=== PATIENT | female | born 1960 | race Caucasian/White ===

== ENCOUNTER 2020-07-30 23:49 | Emergency (ER) | payer OTHER, SELFPAY ==
[2020-07-30 23:51] VITALS: BP 92/56; PULSE 100; RESP 16; TEMP 36.6; O2SAT 94; BMI 33.5
[2020-07-31] VITALS (9 sets, daily range): BP systolic 98–132; BP diastolic 60–86; PULSE 76–99; RESP 12–82; TEMP 36.6–37; O2SAT 95–100
--- NOTE | 2020-07-31 00:44 | CTR_ITS ---
PROCEDURE INFORMATION: Exam: CT Head Without Contrast Exam date and time: 07/31/2020 12:50 AM Age: 59 years old Clinical indication: Pain; Headache TECHNIQUE: Imaging protocol: Computed tomography of the head without contrast. Radiation optimization: All CT scans at this facility use at least one of these dose optimization techniques: automated exposure control; mA and/or kV adjustment per patient size (includes targeted exams where dose is matched to clinical indication); or iterative reconstruction. COMPARISON: CT head wo con* [id number] 09/25/2018 10:36 AM RADIATION DOSE METRICS: Total DLP (mGy-cm): 736.95 FINDINGS: Brain: No hemorrhage. Unremarkable white matter. No mass effect. Continued slight prominence of the supratentorial subarachnoid spaces. Cerebral ventricles: Continued mild enlargement of the 3rd and lateral ventricles compared to the normal 4th ventricle. Paranasal sinuses: Visualized sinuses still unremarkable. No fluid levels. Mastoid air cells: Visualized mastoid air cells still well aerated. Bones/joints: Unremarkable. No acute fracture. Soft tissues: Unremarkable. CT/CT head wo con* [id number] IMPRESSION: No acute findings. Radiation Dose CTDIVOL = (mGy): DLP = 736.95 (mGy-cm)
--- NOTE | 2020-07-31 00:50 | W.ED.HA ---
HPI - Headache General: Chief Complaint: Headache Stated Complaint: HEADACHE Time Seen by Provider: 07/31/20 00:19 History of Present Illness: HPI Narrative: Patient comes in today for complaints of migraine headache. Patient reports that the headache is very similar to her usual migraines. Patient was given hydrocodone and Zofran at the [facility] in which she [facility]. Patient reported some improvement in her headache but continues to have discomfort in the posterior neck. Patient has a history of MS and Pritesh Washington syndrome. Patient is alert and oriented and responds appropriately to questions. Review of Systems General: Reports: 10 or more systems reviewed and unremarkable except in HPI and below Neuro: Reports: headache(s) Physical Exam Const: COMMON NORMALS: no acute distress and patient oriented x3 GENERAL APPEARANCE: cooperative HENMT: COMMON NORMALS: normocephalic and Normal external nose present HEAD & SCALP: normal to inspection and normocephalic NOSE: Normal external nose present Eye: GENERAL EYE: appearance normal, both eyes and all related structures Neck/C-Spine: COMMON NORMALS: full ROM Lymph: LYMPHATIC: no lymphadenopathy noted Chest: COMMONS NORMALS: normal inspection of the chest Resp: COMMON NORMALS: normal respiratory effort EFFORT & INSPECTION: Yes able to speak in complete sentences Cardio: COMMON NORMALS: regular rate and regular rhythm RATE: regular rate RHYTHM: regular rhythm GI: COMMON NORMALS: non-tender Extremity: COMMON NORMALS: normal to inspection Neuro: COMMON NORMALS: patient oriented x3 and moves all extremities Psych: COMMON NORMALS: mental status grossly normal and cooperative Skin: COMMON NORMALS: no rashes or lesions noted GENERAL SKIN EXAM: no rashes or lesions noted Course Vital Signs: Vital signs: Vital Signs Temperature 97.9 F 07/30/20 23:51 Pulse Rate 88 07/31/20 00:58 Respiratory Rate 20 H 07/31/20 00:58 Blood Pressure 98/60 07/31/20 00:58 Pulse Oximetry 98 07/31/20 00:58 MDM - Headache MDM Narrative: Medical decision making narrative: 59-year-old female comes in today with complaints of migraine headache. Patient reports that this is similar to her previous migraines. Patient [facility] the detention since having a bout of GBS. Patient was treated with hydrocodone and Zofran with minimal to no relief of pain. Patient was then sent to the ER for further evaluation and treatment. No neurologic deficits were noted. Respirations were even. Skin was warm and dry. Vital signs were normal. Differential diagnosis includes but not limited to migraine headache, tension headache, intracranial bleeding. CT scan was negative. Patient was treated with a migraine cocktail and had resolution of headache. Reviewed with patient and family reported understanding and agreed to plan to return to the detention for continued care. Discharge Plan Discharge Patient Disposition: Home Clinical Impression: Migraine Qualifiers: Migraine type: unspecified Status migrainosus presence: without status migrainosus Intractability: not intractable Qualified Code(s): G43.909 - Migraine, unspecified, not intractable, without status migrainosus Condition: Stable Discharge Orders: Discharge ED (Routine); Ordered 07/31/20 Ordered By: Daniel Canela Referrals: David Da Silva DO [Primary Care Provider] - Discharge Diet: Usual diet Discharge Activity: Increase activity as tolerated Patient Instructions: Opioid Safety Activity Restrictions/Additional Instructions: Continue with routine care. Encourage plenty of fluids. Follow-up with primary care for further instruction. Coding Level of Care Code ED Entertainer & Comic for Chg Fwd Exam Comprehensive
[2020-07-31] MEDS: diphenhydrAMINE 50 mg/mL SDV 1mL 12.5 MG IVP ×2 (01:19→02:44)
[2020-07-31] MEDS: metoclopramide 5 mg/mL SDV 2 mL 10 MG IVP (01:20)
[2020-07-31] MEDS: dexamethasone 10 mg/mL INJ IVP (01:20)
[2020-07-31] MEDS: ketorolac 30 mg/mL INJ 15 MG IVP (01:20)
--- NOTE | 2020-07-31 06:46 | PC.NURSE ---
Received report assumed care. No changes noted from report. Resting with lights off. Resting on back right side. Vital charted.
== END 2020-07-31 07:46 | disposition home or self-care (01) ==
PROVIDERS: Emergency Provider Nurse Practitioner Family; PCP Internal Medicine
DX: G43.909 Migraine, unspecified, not intractable, without status migrainosus (principal)
CPT/HCPCS: 70450; 96374; 96375; 96376; 99284; J1100; J1200; J1885; J2765

== ENCOUNTER 2021-02-15 09:24 | Inpatient (IN) | payer OTHER, SELFPAY ==
[2021-02-15] VITALS (10 sets, daily range): BP systolic 126–178; BP diastolic 76–110; PULSE 76–115; RESP 16–22; TEMP 36.7–37.2; O2SAT 92–97; BMI 33.3
--- NOTE | 2021-02-15 09:44 | CTR_ITS ---
PROCEDURE INFORMATION: Exam: CT Abdomen And Pelvis With Contrast Exam date and time: 02/15/2021 9:44 AM Age: 60 years old Clinical indication: Epigastric; Patient HX: 58-year-old female presents emergency room complaining of upper abdominal pain with coffee-ground emesis. She refers pain to the left upper quadrant. ; Additional info: Abd pain TECHNIQUE: Imaging protocol: Computed tomography of the abdomen and pelvis with contrast. Radiation optimization: All CT scans at this facility use at least one of these dose optimization techniques: automated exposure control; mA and/or kV adjustment per patient size (includes targeted exams where dose is matched to clinical indication); or iterative reconstruction. Contrast material: VISIPAQUE; Contrast volume: 95 ml; Contrast route: INTRAVENOUS (IV); COMPARISON: CT abdomen pelvis w con* [id number] 10/26/2018 6:50 PM RADIATION DOSE METRICS: Total DLP (mGy-cm): 1643.18 FINDINGS: Liver: Normal. No mass. Gallbladder and bile ducts: Cholecystectomy. No ductal dilation. Pancreas: Normal. No ductal dilation. Spleen: Multiple calcified granulomas noted in the spleen. No splenomegaly. Adrenal glands: Normal. No mass. Kidneys and ureters: Bilateral cortical thinning. 1 cm cyst in the interpolar region of the left kidney. Stomach and bowel: Moderate-sized hiatal hernia containing the proximal portion of the stomach. Scattered colonic diverticulosis without findings of acute diverticulitis. No obstruction. No mucosal thickening. Appendix: No evidence of appendicitis. Intraperitoneal space: Unremarkable. No free air. No significant fluid collection. Vasculature: No abdominal aortic aneurysm. There is a well-defined nonocclusive filling defect/thrombus within the IVC starting at the level of the renal veins extending inferiorly to the level of the bifurcation of the common iliac veins. It measures over 10 cm in craniocaudal dimension. There also appears to be nonocclusive thrombus within the left external iliac and superficial femoral veins. Lymph nodes: Unremarkable. No enlarged lymph nodes. Urinary bladder: Circumferential wall thickening of the bladder with Haro catheter in place. Reproductive: Unremarkable as visualized. Bones/joints: No acute fracture. Soft tissues: Tiny fat containing umbilical hernia noted. Multiple calcified nodules noted in the gluteal subcutaneous tissues, likely injection sites. CT/CT abdomen pelvis w con* [id number] IMPRESSION: 1. 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 There also appears to be nonocclusive thrombus within the left external iliac and for superficial femoral vein. Ultrasound DVT study should provide more sensitive evaluation for the full extent of thrombus proximally through the common iliac vessels. 2. Circumferential wall thickening of the bladder. Correlate with urinalysis. 3. Moderate-sized hiatal hernia containing the proximal portion of the stomach. COMMENTS: Consistent with the [employer]'s Incidental Findings Committee white paper (J Am Lorenzo Radiol 2018): Any incidental renal lesion less than 1 cm or classified as too small to characterize, or any incidental cystic renal lesion characterized as simple-appearing, is likely benign. No follow-up imaging is recommended for these lesions per consensus recommendations based on imaging criteria.
--- NOTE | 2021-02-15 10:12 | W.ED.GIBLEED ---
HPI - GI Bleed General: Chief complaint: GI Bleed Stated complaint: UPPER ABD PAIN/GI BLEED Time Seen by Provider: 02/15/21 09:24 History of Present Illness: HPI Narrative: 58-year-old female presents emergency room complaining of upper abdominal pain with coffee-ground emesis. She refers pain to the left upper quadrant. She denies dysuria urgency frequency shortness of breath. Patient has a history of multiple sclerosis and Guillain-Washington?. [facility]. She is incontinent of stool and bowel. There is no reports of hematochezia. She denies any fever sweats or chills. MD complaint: coffee ground emesis Onset (ago): hour(s) Pain Consistency: intermittent Severity: moderate Relieving factors: none Exacerbating factors: none Associated symptoms: Reports abdominal pain, nausea, vomiting and weakness; Denies chills, easy bruising, epistaxis, fever(s), headache(s), malaise, other bleeding, poor appetite, rash or syncope Treatments Prior to Arrival: none Review of Systems Const: Denies: fever(s), chills or malaise ENMT: Denies: epistaxis Card: Denies: syncope Resp: Denies: dyspnea, productive cough or non-productive cough GI: Reports: abdominal pain, nausea and vomiting : Denies: flank pain, difficulty voiding, dysuria, urinary frequency or urinary urgency Skin/Breast: Denies: rash Neuro: Denies: headache(s) Phil/Lymph: Denies: easy bruising PFS ED PFSH: Medical History (Updated 02/22/21 @ 08:56 by Ismael Pedroza DO) 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 Multiple sclerosis Social History (Updated 02/15/21 @ 10:18 by Ismael Pedroza DO) Smoking and tobacco status: never smoked Alcohol intake: never Physical Exam Const: GENERAL APPEARANCE: cooperative and comfortable ORIENTATION/CONSCIOUSNESS: Yes awake, Yes oriented to person, Yes oriented to place and Yes oriented to time HENMT: COMMON NORMALS: normocephalic, atraumatic and hearing grossly normal bilaterally HEAD & SCALP: normocephalic and atraumatic Neck/C-Spine: COMMON NORMALS: no JVD Resp: COMMON NORMALS: normal respiratory effort, No retractions, No use of accessory muscles and clear to auscultation bilaterally AUSCULTATION: clear to auscultation bilaterally Cardio: COMMON NORMALS: no JVD, regular rate, regular rhythm and No murmurs present (Cardio) RATE: regular rate RHYTHM: regular rhythm GI: COMMON NORMALS: No hepatosplenomegaly present AUSCULTATION: Yes normoactive bowel sounds PALPATION: Yes Tenderness to palpation present (GI) Details: LUQ, No Guarding due to palpation present (GI) and Yes No hepatosplenomegaly present Extremity: COMMON NORMALS: normal to inspection, capillary refill normal, no clubbing, cyanosis or edema, no calf tenderness and no pedal edema Neuro: SENSORIUM/ORIENTATION: Yes oriented to person, Yes oriented to place and Yes oriented to time Skin: COMMON NORMALS: no rashes or lesions noted GENERAL SKIN EXAM: no rashes or lesions noted Course Vital Signs: Vital signs: Vital Signs Temperature 98.3 F 02/17/21 19:00 Pulse Rate 88 02/17/21 19:00 Respiratory Rate 16 02/17/21 19:00 Blood Pressure 130/74 02/17/21 19:00 Pulse Oximetry 94 02/17/21 19:00 MDM - GI Bleed MDM Narrative: Medical decision making narrative: Labs imaging and EKG reviewed. Patient has pretty significant DVT of her lower extremity. Also has acute on chronic kidney injury. Given her extent of DVT and nearly reaches the renal veins. And then kidney injury recommend that she be monitored. We will go ahead and admit herDiscussed with hospitalist orders written Lab Data: Labs: Lab Results 02/15/21 02/15/21 02/15/21 10:04 10:13 10:13 WBC 13.3 10^3/uL H 10 ^3/uL (4.0-10.0) RBC 4.09 10^6/uL L 10 ^6/uL (4.1-5.3) Hgb 11.4 g/dL L g/dL (11.5-15.3) Hct 36.8 % L % (37.0-47.0) MCV 90.0 fl fl (81-99) MCH 27.9 pg L pg (28.0-34.0) MCHC 31.0 g/dL g/dL (30.0-36.0) RDW 15.1 % % (12.1-15.1) Plt Count 413 10^3/cmm H 10 ^3/cmm (130-400) MPV 10.6 fL H fL (7.4-10.4) Neut % (Auto) 86.3 % % Lymph % (Auto) 6.4 % % [place] % (Auto) 6.5 % % Eos % (Auto) 0.2 % % Baso % (Auto) 0.3 % % Neut # (Auto) 11.48 10^3/uL H 1 0^3/uL (1.8-7.7) Lymph # (Auto) 0.9 10^3/uL 10^3/ uL (0.8-4.8) [place] # (Auto) 0.9 10^3/uL 10^3/ uL (0.2-0.9) Eos # (Auto) 0.0 10^3/uL 10^3/ uL (0.0-0.8) Baso # (Auto) 0.0 10^3/uL 10^3/ uL (0.0-0.1) Nucleated RBC % (a uto) 0 % % Nucleated RBCs # 0.0 /100WBC /100W BC PT INR APTT Sodium 136 mmol/L mmol/L (136-145) Potassium 4.0 mmol/L mmol/L (3.5-5.1) Chloride 98 mmol/L mmol/L (98-107) Carbon Dioxide 22 mmol/L mmol/L (22-29) Anion Gap 20.0 H (5-19) BUN 24 mg/dL H mg/dL (8-23) Creatinine 1.3 mg/dL H mg/dL (0.5-0.9) GFR Calculation 41.5 mL/min L mL/ min (90-130) Glucose 120 mg/dL H mg/dL (65-115) Calculated Osmolal ity 287 mOsm/kg mOsm/ kg (285-295) Calcium 9.1 mg/dL mg/dL (8.5-10.5) Total Bilirubin 0.2 mg/dL mg/dL (0.15-1.2) AST 16 U/L U/L (0-32) ALT 8 U/L U/L (0-33) Alkaline Phosphata se 136 IU/L H IU/L (35-105) Total Protein 7.5 g/dL g/dL (6.6-8.7) Albumin 3.9 g/dL g/dL (3.5-5.2) Globulin 3.6 g/dL g/dL (1.3-4.6) Urine Color Brown (Yellow) Urine Appearance Cloudy (CLEAR) Urine pH 8 H (5-7) Ur Specific Gravit y 1.010 (1.005-1.030) Urine Protein Neg (Negative) Urine Glucose (UA) Norm (Normal) Urine Ketones Negative (Negative) Urine Blood 2+ H (Negative) Urine Nitrate Negative (Negative) Urine Bilirubin Neg (Negative) Prot Sulfosalicyli c Acd Positive (Negative) Urine Urobilinogen Norm mg/dL mg/dL (Negative) Ur Leukocyte Alisha ase 1+ H (Negative) Urine RBC 0-4 /hpf H /hpf (0-2) Urine WBC 0-4 /hpf H /hpf (0-5) Ur Squamous Epith Cells Rare /hpf /hpf (0-5) Amorphous Sediment Not Reportable Urine Bacteria 4+ /hpf H /hpf (NONE) 02/15/21 11:29 WBC RBC Hgb Hct MCV MCH MCHC RDW Plt Count MPV Neut % (Auto) Lymph % (Auto) [place] % (Auto) Eos % (Auto) Baso % (Auto) Neut # (Auto) Lymph # (Auto) [place] # (Auto) Eos # (Auto) Baso # (Auto) Nucleated RBC % (a uto) Nucleated RBCs # PT 13.90 SECONDS SEC ONDS (12.1-14.9) INR 1.04 (0.8-1.2) APTT 31.7 SECONDS SECO NDS (23.9-36.7) Sodium Potassium Chloride Carbon Dioxide Anion Gap BUN Creatinine GFR Calculation Glucose Calculated Osmolal ity Calcium Total Bilirubin AST ALT Alkaline Phosphata se Total Protein Albumin Globulin Urine Color Urine Appearance Urine pH Ur Specific Gravit y Urine Protein Urine Glucose (UA) Urine Ketones Urine Blood Urine Nitrate Urine Bilirubin Prot Sulfosalicyli c Acd Urine Urobilinogen Ur Leukocyte Alisha ase Urine RBC Urine WBC Ur Squamous Epith Cells Amorphous Sediment Urine Bacteria Discharge Plan Discharge Patient Disposition: Admitted As Inpatient Admit Provider: Kristian Nix Clinical Impression: Deep vein thrombosis, lower right extremity, Acute kidney injury superimposed on CKD, 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
[2021-02-15] MEDS: pantoprazole 40 mg SDV 80 MG IVP (10:23)
[2021-02-15] MEDS: morphine 4 mg/mL SDV 1 mL 2 MG IVP (10:39)
[2021-02-15 10:52] LABS: Blood Urine 2+ (Negative); Sulfosalicylic Acid Urine Positive (Negative); Urine Appearance Cloudy (CLEAR); Urine Color Brown (Yellow); pH Urine 8 (5-7)
[2021-02-15 10:53] LABS: Add Urine Culture? Yes; Add Urine Microscopic? YES; Bacteria Urine 4+ /hpf; Bilirubin Urine Neg (Negative); Glucose Urine UA Norm (Normal); Ketones Urine Negative (Negative); Leukocyte Esterase Urine 1+ (Negative); Nitrate Urine Negative (Negative); Protein Urine Neg (Negative); RBC Urine 0-4 /hpf (0-2); Squamous Epithelial Cell Urine RARE /hpf (0-5); Urobilinogen Urine Norm (Negative); WBC Urine 0-4 /hpf (0-5)
--- NOTE | 2021-02-15 11:07 | PC.PHAR ---
pt is from [facility]-huy nurse at [facility] states the pt has been refusing to take her am meds for the last 3 days-states the pt took a norco today but states it came back up
[2021-02-15 11:31] LABS: Basophils % 0.3 %; Eosinophils % 0.2 %; Hematocrit 36.8 % (37.0-47.0); Hemoglobin 11.4 g/dL (11.5-15.3); Lymphocytes # 0.9 10^3/uL (0.8-4.8); Lymphocytes % 6.4 %; Mean Corpuscular Hemoglobin 27.9 pg (28.0-34.0); Mean Platelet Volume 10.6 fL (7.4-10.4); Monocytes # 0.9 10^3/uL (0.2-0.9); Monocytes % 6.5 %; Neutrophils # 11.48 10^3/uL (1.8-7.7); Neutrophils % 86.3 %; Nucleated Red Blood Cells % 0 %; Platelet Count 413 10^3/cmm (130-400); Red Blood Count 4.09 10^6/uL (4.1-5.3); Red Cell Distribution Width 15.1 % (12.1-15.1); White Blood Count 13.3 10^3/uL (4.0-10.0)
[2021-02-15 11:55] LABS: INR 1.04 (0.8-1.2)
[2021-02-15 11:56] LABS: Partial Thromboplastin Time 31.7 SECONDS (23.9-36.7)
[2021-02-15 12:03] LABS: Alanine Aminotransferase 8 U/L (0-33); Albumin Level 3.9 g/dL (3.5-5.2); Alkaline Phosphatase 136 IU/L (35-105); Aspartate Amino Transferase 16 U/L (0-32); Blood Urea Nitrogen 24 mg/dL (8-23); Calcium 9.1 mg/dL (8.5-10.5); Carbon Dioxide 22 mmol/L (22-29); Chloride 98 mmol/L (98-107); Creatinine Clr Calc Pharmacy 49.9284; Globulin 3.6 g/dL (1.3-4.6); Glomerular Filtration Rate 41.5 mL/min (90-130); Glucose 120 mg/dL (65-115); Osmolality Calculated 287 mOsm/kg (285-295); Sodium 136 mmol/L (136-145); Total Bilirubin 0.2 mg/dL (0.15-1.2); Total Protein 7.5 g/dL (6.6-8.7)
[2021-02-15] MEDS: iodixanol 320 mg/mL 100mL Btl IV (12:58)
--- NOTE | 2021-02-15 15:47 | USCV_ITS ---
Ari Margarita Age: 60 Gender: F : 1960 Exam Date: 02/15/2021 15:55 Ordering Phys: Ismael Pedroza DO Technologist: Exam Location: [facility] – [place] Indication: ? PE HISTORY: BED STASIS PT DOES NOT WALK PROCEDURES: The venous duplex Doppler examination of both lower extremities was performed in the standard fashion. The following venous structures were evaluated: common femoral vein, profunda vein, proximal portion of the greater saphenous vein, superficial femoral vein, and the popliteal vein. FINDINGS: THERE IS NON OCCLUDING DVT IN RT CFV, FEMORAL VEIN AND RT POP. THE LEFT LEG APPEARS TO BE NORMAL BUT THE EXAM IS TECH LIMITED DUE TO LOW VEIN VOLUME CONCLUSIONS Non occlusive DVT Right common femoral vein, femoral vein, and right popliteal vein No evidence of left lower extremity DVT. Po Tee MD (Electronically Signed) Final Date: 15 February 2021 16:24 S
[2021-02-15] MEDS: heparin 5,000 unit/mL INJ 1 mL 4000 UNIT IVP (16:15)
[2021-02-15] MEDS: heparin drip 25,000 UNIT/500 ML PREMIX 47.17 UNIT IV (16:19)
--- NOTE | 2021-02-15 17:21 | PM.HP ---
Providers/Chief Complaint Primary Care Provider: David Da Silva DO Chief Complaint: UPPER ABD PAIN/GI BLEED History of Present Illness Margarita Chapman is a 60 year old female with PMH of GBS, [facility] and is bed bound with indwelling christensen catheter came in with c/o abdominal pain as well as nausea and vomiting,she describes the pain in LUQ as well as in epigastric region started today, describe the pain with moderate intensity, non radiating,accompanied with nausea and coffee ground emesis. She denied any chest pain,cough,sob,fever,headache. Upon arrival in the ER she was worked up for above mention complain. 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 There also appears to be nonocclusive thrombus within the left external iliac and for superficial femoral vein. Lower Extremity B/L Doppler Vein : Non occlusive DVT Right common femoral vein, femoral vein, and right popliteal vein No evidence of left lower extremity DVT. Pertinent Labs : WBC :13.3T , H&H : 11.4/36, PLT : 413 , Serum Na: 136, k: 4, bun/scr: 24/1.3, Urine analysis :Clean She was started on Hepain drip in the ER Review of Systems Const: Denies: fever(s), chills, body aches, change in appetite or diaphoresis Card: Denies: palpitations, edema, swelling of feet/ankles or orthopnea Resp: Denies: dyspnea, productive cough, wheezing or pain on inspiration GI: Denies: diarrhea or constipation : Denies: flank pain Musc: Denies: extremity pain or extremity swelling Neuro: Denies: headache(s) or confusion Medications/Allergies Home Medications Medication Instructions Recorded Confirmed Last Taken Type acetaminophen [Tylenol] 650 mg PO Q6H PRN 02/15/21 02/15/21 Unknown History albuterol sulfate 2.5 mg INHALATION Q4H PRN 02/15/21 02/15/21 Unknown History bisacodyl [Dulcolax (bisacodyl)] 10 mg MI DAILY PRN 02/15/21 02/15/21 Unknown History calcium carbonate [Tums] 300 mg PO TID@08,12,16 02/15/21 02/15/21 Unknown History cholecalciferol (vitamin D3) 25 mcg PO DAILY@08 02/15/21 02/15/21 Unknown History [Vitamin D3] citalopram [Celexa] 10 mg PO BEDTIME@20 02/15/21 02/15/21 Unknown History cyclobenzaprine 5 mg PO TID PRN 02/15/21 02/15/21 Unknown History divalproex [Depakote ER] 250 mg PO DAILY 02/15/21 02/15/21 Unknown History docusate sodium 100 mg PO BID PRN 02/15/21 02/15/21 Unknown History gabapentin See Rx Instructions .ROUTE .COMPLEX 02/15/21 02/15/21 Unknown History hydrocodone-acetaminophen 1 tab PO Q6H PRN 02/15/21 02/15/21 02/15/21 08:00 History lorazepam [Ativan] 0.5 mg PO BEDTIME@02/15/21 02/15/21 Unknown History magnesium hydroxide [Milk of 30 ml PO DAILY PRN 02/15/21 02/15/21 Unknown History Magnesia] omeprazole 20 mg PO DAILY@08 02/15/21 02/15/21 Unknown History ondansetron [Zofran ODT] 4 - 8 mg PO Q6H PRN 02/15/21 02/15/21 02/14/21 History phenol [Chloraseptic Throat [place]] 1 spray MUCOUS MEMBRANE . 02/15/21 02/15/21 Unknown History DIRECTED polyethylene glycol 3350 [Miralax] 17 g PO DAILY PRN 02/15/21 02/15/21 Unknown History propylene glycol-glycerin 1 drp OPHTHALMIC (EYE) TID PRN 02/15/21 02/15/21 Unknown History [Artificial Tears(glycerin-peg)] saliva stimulant comb. no.7 See Rx Instructions .ROUTE .COMPLEX 02/15/21 02/15/21 Unknown History [Biotene Oralbalance (glycerin)] sodium phosphates [Fleet Enema] 118 ml MI DAILY PRN 02/15/21 02/15/21 Unknown History thiamine mononitrate (vit B1) 200 mg PO BID 02/15/21 02/15/21 Unknown History trazodone 50 mg PO BEDTIME@20 02/15/21 02/15/21 Unknown History Allergies Allergy/AdvReac Type Severity Reaction Status Date / Time cephalexin [From Keflex] Allergy Unknown Verified 02/15/21 10:46 clindamycin [From Cleocin] Allergy Unknown Verified 02/15/21 10:46 nitrofurantoin Allergy Unknown Verified 02/15/21 10:46 [From Macrobid] Penicillins Allergy ALGY-Hives Verified 07/30/20 23:59 Sulfa (Sulfonamide Allergy Unknown Verified 02/15/21 10:46 Antibiotics) PFSH Acute PFSH: Medical History (Updated 02/15/21 @ 22:21 by Kristian Nix MD) 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 Multiple sclerosis Social History (Updated 02/15/21 @ 10:18 by Ismael Pedroza DO) Smoking and tobacco status: never smoked Alcohol intake: never Substance/Drug Use: never Vitals/I&O/Wt Last Vital Signs Temp 99.0 F 02/15/21 13:00 Pulse 110 H 02/15/21 13:00 Resp 18 02/15/21 13:00 BP 167/96 02/15/21 13:00 Pulse Ox 93 02/15/21 13:00 Weight last 48 hrs Weight 90.718 kg Physical Exam Const: COMMON NORMALS: patient oriented x3 HENMT: COMMON NORMALS: normocephalic and atraumatic HEAD & SCALP: normocephalic and atraumatic Chest: CHEST: Yes Symmetrical chest wall rise Resp: COMMON NORMALS: clear to auscultation bilaterally EFFORT & INSPECTION: Yes symmetric chest movement AUSCULTATION: clear to auscultation bilaterally Cardio: COMMON NORMALS: regular rate, regular rhythm, S1 normal heart sound present, S2 normal heart sound present, No gallops present (Cardio), No murmurs present (Cardio), No rub (Cardio) and Peripheral pulses 2+ throughout RATE: regular rate RHYTHM: regular rhythm HEART SOUNDS: S1 normal heart sound present and S2 normal heart sound present PERIPHERAL PULSES: Peripheral pulses 2+ throughout GI: COMMON NORMALS: Normal to inspection, nondistended, normoactive bowel sounds present, Soft to palpation, non-tender, No hepatosplenomegaly present and no masses AUSCULTATION: Yes normoactive bowel sounds PALPATION: Yes Soft to palpation and Yes No hepatosplenomegaly present RECTAL EXAM: deferred Extremity: COMMON NORMALS: no clubbing, cyanosis or edema and no pedal edema Neuro: COMMON NORMALS: patient oriented x3 Data : 02/15/21 10:13 02/15/21 10:13 A&P Assessment and plan (1) Deep vein thrombosis, lower right extremity: Status: Acute (2) Acute kidney injury superimposed on CKD: Status: Acute (3) Thrombocytosis: Status: Acute (4) 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 and is bed bound with indwelling christensen catheter came in with c/o abdominal pain as well as nausea and vomiting,she describes the pain in LUQ as well as in epigastric region started today, describe the pain with moderate intensity, non radiating,accompanied with nausea and coffee ground emesis. #Extensive Rt lower Extremity DVT : Likely 2/2 to being bed bound Currently on Heparin drip,will switch to lovenox and finally transition to eliquis on discharge. #Coffee Ground Emesis : On Protonix Continue to monitor H&H #GIAN ON CKD Stage 3 : 2/2 to poor oral intake Continue I.V Hydration Monitor BMP. Code Status :Full code DVT PPX:On Heparin Attestations Medical Necessity Statement*: Patient needs to be in hospital for the management of extensive rt lower ext dvt.Anticipated LOS Greater then 2 Midnights. 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
[2021-02-15] MEDS: sodium chloride 0.9% 1,000 ML 75 ML IV (17:25)
--- NOTE | 2021-02-15 17:28 | PC.NURSE ---
Rolled pt and changed diaper. Repositioned for comfort
--- NOTE | 2021-02-15 19:40 | PC.NURSE ---
report called to [facility] and report given to Nanette Snyder .
--- NOTE | 2021-02-15 20:56 | PC.NURSE ---
i reported high pulse 103 to nurse
[2021-02-15] MEDS: thiamine 100 mg Tablet 200 MG PO (22:26)
[2021-02-15] MEDS: citalopram 20 mg Tablet 10 MG PO (22:26)
[2021-02-15] MEDS: trazodone 50 mg Tablet PO (22:26)
[2021-02-15] MEDS: gabapentin 300 mg Capsule 600 MG PO (22:26)
[2021-02-15] MEDS: LORazepam 0.5 mg Tablet PO (22:27)
[2021-02-16] VITALS (8 sets, daily range): BP systolic 120–140; BP diastolic 77–83; PULSE 91–104; RESP 16–18; TEMP 36.6–37.1; O2SAT 93–99
[2021-02-16 00:20] LABS: Partial Thromboplastin Time 147.4 SECONDS (23.9-36.7)
[2021-02-16] MEDS: sodium chloride 0.9% 1,000 ML 75 ML IV ×2 (04:41→17:48)
[2021-02-16 06:52] LABS: Basophils % 0.5 %; Eosinophils # 0.1 10^3/uL (0.0-0.8); Eosinophils % 1.1 %; Hematocrit 31.8 % (37.0-47.0); Hemoglobin 9.7 g/dL (11.5-15.3); Lymphocytes # 1.4 10^3/uL (0.8-4.8); Lymphocytes % 16.1 %; Mean Corpuscular HGB Conc 30.5 g/dL (30.0-36.0); Mean Corpuscular Hemoglobin 27.5 pg (28.0-34.0); Mean Corpuscular Volume 90.1 fl (81-99); Mean Platelet Volume 9.9 fL (7.4-10.4); Monocytes # 0.7 10^3/uL (0.2-0.9); Monocytes % 8.5 %; Neutrophils # 6.16 10^3/uL (1.8-7.7); Neutrophils % 73.2 %; Nucleated Red Blood Cells % 0 %; Platelet Count 368 10^3/cmm (130-400); Red Blood Count 3.53 10^6/uL (4.1-5.3); Red Cell Distribution Width 15.4 % (12.1-15.1); White Blood Count 8.4 10^3/uL (4.0-10.0)
[2021-02-16 07:05] LABS: Alanine Aminotransferase 6 U/L (0-33); Albumin Level 3.2 g/dL (3.5-5.2); Alkaline Phosphatase 116 IU/L (35-105); Aspartate Amino Transferase 13 U/L (0-32); Blood Urea Nitrogen 21 mg/dL (8-23); Carbon Dioxide 20 mmol/L (22-29); Chloride 103 mmol/L (98-107); Globulin 3.1 g/dL (1.3-4.6); Glomerular Filtration Rate 50.3 mL/min (90-130); Glucose 105 mg/dL (65-115); Osmolality Calculated 287 mOsm/kg (285-295); Sodium 137 mmol/L (136-145); Total Bilirubin 0.2 mg/dL (0.15-1.2); Total Protein 6.3 g/dL (6.6-8.7)
[2021-02-16 07:45] LABS: Partial Thromboplastin Time 145.8 SECONDS (23.9-36.7)
[2021-02-16] MEDS: thiamine 100 mg Tablet 200 MG PO ×2 (08:07→17:48)
[2021-02-16] MEDS: gabapentin 300 mg Capsule PO ×2 (08:07→11:45)
[2021-02-16] MEDS: divalproex ER 250 mg Tablet (24H) PO (08:08)
[2021-02-16] MEDS: pantoprazole DR 40 mg Tablet PO (08:08)
--- NOTE | 2021-02-16 09:24 | PC.NURSE ---
Patient has urine culture: gram negative rods. Green Chain Worker notified Dr Nix and collin order for Levafloxacin 750mg IV daily. development writer put order in.
--- NOTE | 2021-02-16 10:05 | PC.NURSE ---
Rcvd verbal order from Dr Nix for Maalox PRN, Lovenox 90mg BID and to stop heparin drip
[2021-02-16] MEDS: HYDROcodone-acetaminophen 5-325 mg Tablet 1 TAB PO (10:12)
[2021-02-16] MEDS: levofloxacin-dextrose 5 % 750 MG/150 ML PREMIX 100 MG IV (10:13)
[2021-02-16] MEDS: alum-mag-hydroxide-sime 30 mL UDC PO ×2 (10:16→17:48)
[2021-02-16] MEDS: enoxaparin 100 mg/mL Syringe 90 MG SUBCUT ×2 (11:28→21:09)
--- NOTE | 2021-02-16 13:26 | P.PN_ITS ---
Subjective Subjective: Interval history: Patient was seen and examined this morning, she was complaining of generalized abdominal pain, she was also complaining of nausea, Hb has down trended to 9.7, WBC is also down trended to 8.4, as well as platelet count has decreased, likely dilutional secondary to IV hydration. Continue to monitor hemoglobin Medications: Reviewed: Yes Vitals/I&O/Wt Last Vital Signs Temp 98.2 F 02/16/21 11:24 Pulse 97 02/16/21 11:24 Resp 16 02/16/21 11:24 BP 120/78 02/16/21 11:24 Pulse Ox 95 02/16/21 11:24 02/15/21 02/16/21 02/16/21 22:59 06:59 14:59 Intake Total 1139 / 1139 250 / 250 Output Total 260 / 260 175 / 175 Balance 879 / 879 75 / 75 Weight last 48 hrs Weight 90.718 kg Physical Exam Const: COMMON NORMALS: patient oriented x3 HENMT: COMMON NORMALS: normocephalic and atraumatic HEAD & SCALP: normocephalic and atraumatic Chest: CHEST: Yes Symmetrical chest wall rise Resp: COMMON NORMALS: clear to auscultation bilaterally EFFORT & INSPECTI ON: Yes symmetric chest movement AUSCULTATION: clear to auscultation bilaterally Cardio: COMMON NORMALS: regular rate, regular rhythm, S1 normal heart sound present, S2 normal heart sound present, No gallops present (Cardio), No murmurs present (Cardio), No rub (Cardio) and Peripheral pulses 2+ throughout RATE: regular rate RHYTHM: regular rhythm HEART SOUNDS: S1 normal heart sound present and S2 normal heart sound present PERIPHERAL PULSES: Peripheral pulses 2+ throughout GI: COMMON NORMALS: Normal to inspection, nondistended, normoactive bowel sounds present, Soft to palpation, non-tender, No hepatosplenomegaly present and no masses AUSCULTATION: Yes normoactive bowel sounds PALPATION: Yes Soft to palpation and Yes No hepatosplenomegaly present RECTAL EXAM: deferred Extremity: COMMON NORMALS: no clubbing, cyanosis or edema and no pedal edema Neuro: COMMON NORMALS: patient oriented x3 Data : 02/17/21 04:35 02/17/21 04:35 Micro: Microbiology 02/15/21 10:04 Urine Culture - Preliminary Urine,Clean Catch Gram Negative Rods Gram Negative Rods#2 A&P Assessment and plan (1) Deep vein thrombosis, lower right extremity: Status: Acute (2) Acute kidney injury superimposed on CKD: Status: Acute (3) Thrombocytosis: Status: Acute (4) 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 #Extensive Rt lower Extremity DVT : Likely 2/2 to being bed bound Currently on Heparin drip,will switch to lovenox and finally transition to eliquis on discharge. #Coffee Ground Emesis : On Protonix Continue to monitor H&H #GIAN ON CKD Stage 3 : 2/2 to poor oral intake Continue I.V Hydration Monitor BMP. 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
[2021-02-16 14:15] LABS: Partial Thromboplastin Time 38.7 SECONDS (23.9-36.7)
--- NOTE | 2021-02-16 15:35 | PC.NURSE ---
christensen catheter was placed on January 28 per SNF.
--- NOTE | 2021-02-16 15:55 | PC.NURSE ---
patient arrived back from MRI
[2021-02-16] MEDS: LORazepam 0.5 mg Tablet PO (21:06)
[2021-02-16] MEDS: trazodone 50 mg Tablet PO (21:07)
[2021-02-16] MEDS: gabapentin 300 mg Capsule 600 MG PO (21:07)
[2021-02-16] MEDS: citalopram 20 mg Tablet 10 MG PO (21:08)
[2021-02-16] MEDS: ondansetron 2 mg/ML SDV 2 mL 4 MG IVP (21:39)
--- NOTE | 2021-02-16 22:47 | PC.NURSE ---
Pt reports no nausea or vomiting. requests more for snack. I have already given her several snacks. Advised her to not eat anything else at this time since she was feeling like vomiting about an hour ago. RAHEL
[2021-02-17] VITALS (7 sets, daily range): BP systolic 114–130; BP diastolic 68–78; PULSE 88–99; RESP 16–18; TEMP 36.7–36.8; O2SAT 91–96
--- NOTE | 2021-02-17 04:42 | PC.NURSE ---
Lab at bedside. IV to right AC pulled out. Pressure applied to site. min bleeding noted. IV fluids changed to left AC site. RAHEL
[2021-02-17 05:22] LABS: Basophils % 0.5 %; Eosinophils # 0.1 10^3/uL (0.0-0.8); Hematocrit 29.4 % (37.0-47.0); Hemoglobin 8.8 g/dL (11.5-15.3); Lymphocytes # 1.4 10^3/uL (0.8-4.8); Lymphocytes % 23.3 %; Mean Corpuscular HGB Conc 29.9 g/dL (30.0-36.0); Mean Corpuscular Hemoglobin 27.5 pg (28.0-34.0); Mean Corpuscular Volume 91.9 fl (81-99); Mean Platelet Volume 10.1 fL (7.4-10.4); Monocytes # 0.7 10^3/uL (0.2-0.9); Monocytes % 10.9 %; Neutrophils # 3.77 10^3/uL (1.8-7.7); Neutrophils % 63.1 %; Nucleated Red Blood Cells % 0 %; Platelet Count 326 10^3/cmm (130-400); Red Cell Distribution Width 15.2 % (12.1-15.1)
[2021-02-17 05:48] LABS: Alanine Aminotransferase 6 U/L (0-33); Albumin Level 3.1 g/dL (3.5-5.2); Alkaline Phosphatase 106 IU/L (35-105); Anion Gap 15.9 (5-19); Aspartate Amino Transferase 11 U/L (0-32); Blood Urea Nitrogen 15 mg/dL (8-23); Carbon Dioxide 19 mmol/L (22-29); Chloride 109 mmol/L (98-107); Globulin 2.9 g/dL (1.3-4.6); Glomerular Filtration Rate 50.3 mL/min (90-130); Glucose 93 mg/dL (65-115); Osmolality Calculated 291 mOsm/kg (285-295); Potassium 3.9 mmol/L (3.5-5.1); Sodium 140 mmol/L (136-145); Total Bilirubin 0.2 mg/dL (0.15-1.2)
--- NOTE | 2021-02-17 06:00 | US_ITS ---
WS: [id number] Complete ABDOMINAL ULTRASOUND HISTORY: Abdominal pain COMPARISON: None available. Technically very difficult evaluation due to body habitus. Liver: 14.4 cm in length. Normal size with coarse echotexture. The entire liver is incompletely visua lized. Portal Vein: Normal hepatopetal flow with monophasic waveform. Gallbladder: Not visualized. Pancreas: Head and tail are poorly visualized. The body is normal. CBD: 0.5 cm. Right kidney: 9.3 cm x 4.9 cm x 4.5 cm. Poorly visualized. No abnormality. Left kidney: 10.6 cm x 5.2 cm x 5.3 cm. Poorly visualized. No abnormality. Spleen: Poorly visualized. Normal size. Aorta and IVC are poorly visualized. No ascites. US/US abdomen complete* [id number] IMPRESSION: 1. Technically very limited evaluation of the abdominal structures due to body habitus. 2. Gallbladder is not identified. After reviewing the prior CT from 10/08/2018 the gallbladder is noted to be surgically absent. 3. No acute abnormality identified.
[2021-02-17] MEDS: thiamine 100 mg Tablet 200 MG PO (09:30)
[2021-02-17] MEDS: gabapentin 300 mg Capsule PO ×2 (09:30→13:27)
[2021-02-17] MEDS: pantoprazole DR 40 mg Tablet PO (09:30)
[2021-02-17] MEDS: HYDROcodone-acetaminophen 5-325 mg Tablet 1 TAB PO (09:30)
[2021-02-17] MEDS: divalproex ER 250 mg Tablet (24H) PO (09:31)
[2021-02-17] MEDS: enoxaparin 100 mg/mL Syringe 90 MG SUBCUT (09:31)
[2021-02-17] MEDS: sodium chloride 0.9% 1,000 ML 75 ML IV (09:32)
--- NOTE | 2021-02-17 10:20 | P.DS_ITS ---
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 She denied any chest pain,cough,sob,fever,headache. Upon arrival in the ER she was worked up for above mention complain. 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 There also appears to be nonocclusive thrombus within the left external iliac and for superficial femoral vein. Lower Extremity B/L Doppler Vein : Non occlusive DVT Right common femoral vein, femoral vein, and right popliteal vein No evidence of left lower extremity DVT. She was admitted for the management of extensive right lower extremity DVT: Initially she was kept on heparin,and later she was transitioned to Lovenox subacute and she was discharged on p.o. Eliquis, though the hemoglobin decreased to 8.8, likely it is dilutional effect from IV hydration given to her secondary to GIAN secondary to severe dehydration, no evident active source of bleeding identified, at the time of discharge prerenal GIAN secondary to poor oral intake had resolved, urine culture during the hospital stay: Grew E. coli and Proteus mirabilis: Sensitive to cefuroxime, she has been discharged on p.o. cefuroxime for additional 3 days, for UTI, she has chronic generalized pain, for which she is on [place]. Had no episode of coffee-ground emesis during the hospital stay, Protonix was continued on discharge. She will follow-up with repeat CBC in a week to monitor hemoglobin, she has been educated on side effects of anticoagulation,(bleeding), patient and family understands. Patient has been advised to follow with the primary care physician in a week with repeat CBC. Patient responded well to above medical management and is being discharged in stable condition to senior care. Physical Exam Const: COMMON NORMALS: patient oriented x3 HENMT: COMMON NORMALS: normocephalic and atraumatic HEAD & SCALP: normocephalic and atraumatic Chest: CHEST: Yes Symmetrical chest wall rise Resp: COMMON NORMALS: clear to auscultation bilaterally EFFORT & INSPECTION: Yes symmetric chest movement AUSCULTATION: clear to auscultation bilaterally Cardio: COMMON NORMALS: regular rate, regular rhythm, S1 normal heart sound present, S2 normal heart sound present, No gallops present (Cardio), No murmurs present (Cardio), No rub (Cardio) and Peripheral pulses 2+ throughout RATE: regular rate RHYTHM: regular rhythm HEART SOUNDS: S1 normal heart sound present and S2 normal heart sound present PERIPHERAL PULSES: Peripheral pulses 2+ throughout GI: COMMON NORMALS: Normal to inspection, nondistended, normoactive bowel sounds present, Soft to palpation, non-tender, No hepatosplenomegaly present and no masses AUSCULTATION: Yes normoactive bowel sounds PALPATION: Yes Soft to palpation and Yes No hepatosplenomegaly present RECTAL EXAM: deferred Extremity: COMMON NORMALS: no clubbing, cyanosis or edema and no pedal edema Neuro: COMMON NORMALS: patient oriented x3 Discharge Data Data Completed and Pending: Completed Studies During Hospitalization Category Date Time Status CT abdomen pelvis w con* [id number] Stat Cat Scan 02/15/21 09:44 [place] [id number] Stat Ultrasound 02/15/21 15:47 Completed US abdomen comple te* [id number] Routine Ultrasound 02/17/21 06:00 Completed Pending at discharge Category Date Time Status Blood Culture Rou gregorio Lab 02/16/21 18:00 Results Complete Blood Co unt w/Auto AM LABS Lab 02/18/21 04:00 Ordered Comprehensive Met abolic Panel AM LA BS Lab 02/18/21 04:00 Ordered Gastricult Occult BLD Stat Lab 02/15/21 09:44 Ordered Immunochemical Fe carson OCB Routine Lab 02/16/21 10:19 Uncollected Labs from last 24 hours 02/17/21 02/17/21 02/16/21 04:35 04:35 13:48 WBC 6.0 RBC 3.20 L Hgb 8.8 L Hct 29.4 L MCV 91.9 MCH 27.5 L MCHC 29.9 L RDW 15.2 H Plt Count 326 MPV 10.1 Neut % (Auto) 63.1 Lymph % (Auto) 23.3 [place] % (Auto) 10.9 Eos % (Auto) 2.0 Baso % (Auto) 0.5 Neut # (Auto) 3.77 Lymph # (Auto) 1.4 [place] # (Auto) 0.7 Eos # (Auto) 0.1 Baso # (Auto) 0.0 Nucleated RBC % (a uto) 0 Nucleated RBCs # 0.0 APTT 38.7 H D Sodium 140 Potassium 3.9 Chloride 109 H Carbon Dioxide 19 L Anion Gap 15.9 BUN 15 Creatinine 1.1 H GFR Calculation 50.3 L Glucose 93 Calculated Osmolal ity 291 Calcium 8.0 L Total Bilirubin 0.2 AST 11 ALT 6 Alkaline Phosphata se 106 H Total Protein 6.0 L Albumin 3.1 L Globulin 2.9 Vitals: Last Vital Signs Temp 98.1 F 02/17/21 07:39 Pulse 94 02/17/21 07:47 Resp 18 02/17/21 07:47 BP 124/78 02/17/21 07:39 Pulse Ox 92 02/17/21 07:47 Discharge Plan Discharge Patient Disposition: Xfer SNF Condition: Stable Prescriptions: New Eliquis 5 mg tablet 5 mg PO BID Qty: 60 RF: 3 cefuroxime axetil 500 mg tablet 500 mg PO BID Qty: 6 RF: 0 Continued docusate sodium 50 mg/5 mL Liquid 100 mg PO BID PRN (Reason: Constipation) RF: 0 Tylenol 325 mg Tablet 650 mg PO Q6H PRN (Reason: Pain) RF: 0 albuterol sulfate 2.5 mg /3 mL (0.083 %) Solution For Nebulization 2.5 mg INHALATION Q4H PRN (Reason: Shortness Of Breath) RF: 0 trazodone 50 mg Tablet 50 mg PO BEDTIME@20 RF: 0 Celexa 10 mg Tablet 10 mg PO BEDTIME@20 RF: 0 hydrocodone-acetaminophen 5-325 mg Tablet 1 tab PO Q6H PRN (Reason: Pain) RF: 0 Tums 300 mg (750 mg) Tablet,Chewable 300 mg PO TID@08,12,16 RF: 0 Ativan 0.5 mg Tablet 0.5 mg PO BEDTIME@20 RF: 0 Milk of Magnesia 400 mg/5 mL Suspension 30 ml PO DAILY PRN (Reason: Constipation) RF: 0 Dulcolax (bisacodyl) 10 mg Suppository 10 mg [place] DAILY PRN (Reason: Constipation) RF: 0 Fleet Enema 19-7 gram/118 mL Enema 118 ml [place] DAILY PRN (Reason: Constipation) RF: 0 gabapentin 300 mg Capsule See Rx Instructions .ROUTE .COMPLEX RF: 0 omeprazole 20 mg Capsule,Delayed Release(Dr/Ec) 20 mg PO DAILY@08 RF: 0 Miralax 17 gram/dose Powder 17 g PO DAILY PRN (Reason: Constipation) RF: 0 Zofran ODT 4 mg Tablet,Disintegrating 4 - 8 mg PO Q6H PRN (Reason: Nausea) RF: 0 Chloraseptic Throat [place] 1.4 % Aerosol,[place] 1 spray MUCOUS MEMBRANE . DIRECTED RF: 0 Vitamin D3 25 mcg (1,000 unit) Capsule 25 mcg PO DAILY@08 RF: 0 Artificial Tears(glycerin-peg) 1-0.3 % Drops 1 drp OPHTHALMIC (EYE) TID PRN (Reason: unknown) RF: 0 Depakote ER 250 mg Tablet Extended Release 24 Hr 250 mg PO DAILY RF: 0 cyclobenzaprine 5 mg Tablet 5 mg PO TID PRN (Reason: Muscle Spasm) RF: 0 thiamine mononitrate (vit B1) 100 mg Tablet 200 mg PO BID RF: 0 Biotene Oralbalance (glycerin) Gel See Rx Instructions .ROUTE .COMPLEX RF: 0 Discharge Orders: Discharge Order (Routine); Ordered 02/17/21 Ordered By: Kristian Nix Other Ambulatory Orders: Complete Blood Count w/Auto (Routine) Timeframe: 1 Week Location: Determined by Patient Ordered By: Kristian Nix Referrals: David Da Silva, [Primary Care Provider] - 1 week Discharge Diet: Regular Patient Instructions: Opioid Safety Discharge Attestations Time Spent in Discharge Care*: less than 30 min Specific Discharge Activities: educating patient, educating and/or supporting family/caregiver, discussing with pcp/other providers, discussing with case checker/social workers/dc planners, documenting/other paperwork and evaluating patient/reviewing data Status at Discharge: Cognitive status at discharge: cognitively intact , Behavioral status at discharge: cooperative , Overall status at discharge: patient is back to baseline Quality Metrics Clinical Quality Measures During this hospital stay, did patient experience: None Coding Level of Care Code Acute Chg DC note Diagnoses Deep vein thrombosis, lower right extremity I82.401 Acute kidney injury superimposed on CKD N17.9; N18.9 Thrombocytosis D75.839 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
[2021-02-17] MEDS: lactulose oral liq 20 gm/30 mL UDC PO (10:43)
[2021-02-17] MEDS: ondansetron 2 mg/ML SDV 2 mL 4 MG IVP (13:35)
[2021-02-17 15:04] LABS: Adenovirus Not Detected (NOT DETECT); Chlamydia Pneumoniae Not Detected (NOT DETECT); Coronavirus 229E,HKU1,NL63,OC4 Not Detected (NOT DETECT); Human Metapneumovirus Not Detected (NOT DETECT); Human Rhinovirus/Enterovirus Not Detected (NOT DETECT); Influenza A Not Detected (NOT DETECT); Influenza A H1 Not Detected (NOT DETECT); Influenza A H1-2009 Not Detected (NOT DETECT); Influenza A H3 Not Detected (NOT DETECT); Influenza B Not Detected (NOT DETECT); Mycoplasma Pneumoniae Not Detected (NOT DETECT); Parainfluenza Virus Type 1 Not Detected (NOT DETECT); Parainfluenza Virus Type 2 Not Detected (NOT DETECT); Parainfluenza Virus Type 3 Not Detected (NOT DETECT); Parainfluenza Virus Type 4 Not Detected (NOT DETECT); Respiratory Syncytial Virus A Not Detected (NOT DETECT); Respiratory Syncytial Virus B Not Detected (NOT DETECT); SARS-COV-2 Not Detected (NOT DETECT)
--- NOTE | 2021-02-17 15:40 | PC.NURSE ---
Called and gave report to WARD Fragoso at [facility].
== END 2021-02-17 19:00 | disposition skilled nursing facility (03) | DRG 300 ==
LOC: ER 13:28 → MEDSURG 17:54
PROVIDERS: Admitting Provider Internal Medicine; Emergency Provider Family Medicine; PCP Internal Medicine; Visit Provider Internal Medicine
DX: I82.411 Acute embolism and thrombosis of right femoral vein (principal); N17.9 Acute kidney failure, unspecified; G61.0 Guillain-Barre syndrome; N39.0 Urinary tract infection, site not specified; I82.431 Acute embolism and thrombosis of right popliteal vein; I82.422 Acute embolism and thrombosis of left iliac vein; G35 Multiple sclerosis; N18.30 Chronic kidney disease, stage 3 unspecified; D75.839 Thrombocytosis, unspecified; D63.1 Anemia in chronic kidney disease; Z74.01 Bed confinement status; E86.0 Dehydration; B96.20 Unspecified Escherichia coli [E. coli] as the cause of diseases classified elsewhere; B96.4 Proteus (mirabilis) (morganii) as the cause of diseases classified elsewhere; Z79.891 Long term (current) use of opiate analgesic
CPT/HCPCS: 36415; 74177; 76700; 80053; 81001; 85025; 85610; 85730; 87040; 87077; 87086; 87186; 87205; 87635; 93970; 96365; 96366; 96372; 96375; 99285; C9113; J1644; J1650; J1956; J2270; J2405; J7030; Q9967

== ENCOUNTER 2021-05-07 10:56 | Outpatient (CLI) | payer OTHER, SELFPAY ==
[2021-05-07 11:34] LABS: INR 2.65 (0.8-1.2)
== END 2021-05-07 10:57 | disposition home or self-care (01) ==
LOC: LAB 10:57
PROVIDERS: PCP Internal Medicine; Visit Provider Internal Medicine
DX: Z01.89 Encounter for other specified special examinations (principal)
CPT/HCPCS: 85610

== ENCOUNTER 2021-05-17 09:16 | Emergency (ER) | payer OTHER, SELFPAY ==
[2021-05-17 09:17] VITALS: BP 121/68; PULSE 102; RESP 18; TEMP 37.2; O2SAT 96
--- NOTE | 2021-05-17 09:21 | ECG_ITS ---
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 Measurements Intervals [place] Rate: 96 P: 1 LA: 135 QRS: 55 QRSD: 70 T: 38 QT: 316 QTc: 400 Interpretive Statements SINUS RHYTHM Compared to ECG 11/14/2018 15:09:03 T-wave abnormality no longer present Electronically Signed On 05-17-2021 16:40:37 CDT by iLtzy Valencia M.D. [email or web address]
[2021-05-17 09:23] VITALS: BP 123/65; PULSE 94; RESP 18; O2SAT 96
--- NOTE | 2021-05-17 09:23 | W.ED.FEMALGU ---
HPI - Female Genitourinary General: Chief complaint: Urogenital-Female Stated complaint: BLOOD IN CATH Time Seen by Provider: 05/17/21 09:17 Source: patient Mode of arrival: EMS Limitations: other (Patient reports mild memory deficits) History of Present Illness: 60-year-old female presents emergency room with complaint of hematuria. She has suprapubic discomfort that began in the last 24 hours. She had a long standing Haro in place she cannot recall exactly when it was placed. Patient reports she has a history of multiple sclerosis and Guillain-[place]?. Per the [place] [facility] report that she was previously on Eliquis, then changed to Coumadin. Evidently yesterday she had an INR of 14 and the Coumadin was stopped. In order calling to check and see if she has been restarted on the Eliquis or some other anticoagulant. In January 2021 patient was hospitalized had an extensive nonocclusive DVT extending to the level of the renal vein from the iliac. At that same time she presented with acute kidney injury so she was hospitalized for a brief period of time and anticoagulation was initiated. She is not having any hematuria she has having some suprapubic discomfort between the umbilicus and pubic bone. MD elicited complaint: other (Hematuria) Onset (ago): hour(s) Severity: mild Quality of pain: cramping Consistency: constant Urinary symptoms: Hematuria Relieving factors: none Associated symptoms: Reports abdominal pain; Deny short of breath, fevers/chills, headache(s), nausea, rash, seizures, syncope, vaginal bleeding, vaginal discharge or weakness Treatment prior to arrival: none Review of Systems Const: Denies: fever(s), chills, body aches, change in appetite, fatigue or malaise ENMT: Denies: throat pain, ear or mastoid pain, nasal discharge or nasal congestion Card: Denies: syncope Resp: Denies: dyspnea, productive cough or non-productive cough GI: Reports: abdominal pain; Denies: nausea : Denies: vaginal discharge Skin/Breast: Denies: rash or pruritus Neuro: Denies: headache(s) PFS ED PFSH: 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 sclerosis Social History Smoking and tobacco status: never smoked Alcohol intake: never Physical Exam Const: GENERAL APPEARANCE: cooperative and comfortable ORIENTATION/CONSCIOUSNESS: Yes awake HENMT: COMMON NORMALS: normocephalic, atraumatic and hearing grossly normal bilaterally HEAD & SCALP: normocephalic and atraumatic Neck/C-Spine: COMMON NORMALS: no JVD Resp: COMMON NORMALS: normal respiratory effort, No retractions, No use of accessory muscles and clear to auscultation bilaterally AUSCULTATION: clear to auscultation bilaterally Cardio: COMMON NORMALS: no JVD, regular rate, regular rhythm and No murmurs present (Cardio) RATE: regular rate RHYTHM: regular rhythm GI: COMMON NORMALS: No hepatosplenomegaly present AUSCULTATION: Yes normoactive bowel sounds PALPATION: Yes Tenderness to palpation present (GI) (Suprapubic tenderness), No Guarding due to palpation present (GI) and Yes No hepatosplenomegaly present : SPECULUM EXAM - VAGINA: No vaginal bleeding OB/EXTERNAL & SPECULUM: No vaginal bleeding Extremity: COMMON NORMALS: normal to inspection, capillary refill normal, no clubbing, cyanosis or edema, no calf tenderness and no pedal edema Skin: COMMON NORMALS: no rashes or lesions noted GENERAL SKIN EXAM: no rashes or lesions noted Course Vital Signs: Vital signs: Vital Signs Temperature 99 F 05/17/21 09:17 Pulse Rate 94 05/17/21 09:23 Respiratory Rate 18 05/17/21 09:23 Blood Pressure 123/65 05/17/21 09:23 Pulse Oximetry 96 05/17/21 09:23 MDM - Female Medical Decision Making Patient arrived with hematuria. See notes above she is on anticoagulant for fairly extensive deep but nonocclusive DVT is approaching the renal artery. She recently switched from Eliquis from clot due to cost to Coumadin her INR was elevated at 14 reportedly yesterday. After irrigation here she has no further bleeding. Reversing her anticoagulation at this point is not necessary she is not having any active bleeding. We will treat her with antibiotics for short course. Recheck INR CBC and BMP at the [place] [facility] within the next 2 to 3 days. Bladder irrigated with 2 L in the ER and patient had return of clear fluid for the last 1500 of irrigation. Medical Records I reviewed the patient's medical records. Lab Data I reviewed the patient's lab results. : 05/17/21 09:30 05/17/21 09:30 Radiology Impressions Abdomen/Pelvis CT 05/17/21 09:32 IMPRESSION: 1. No hydronephrosis in either kidney. No obstructing renal or ureteral calculi. 2. Prior hysterectomy. 3. Mild hepatomegaly. Prior cholecystectomy. 4. Moderate esophageal hiatal hernia with partial intrathoracic stomach. 5. Slight hazy atelectasis in the lung bases. 6. Haro catheter in place. Diffuse bladder wall thickening similar to the prior examination. Recommend correlation for cystitis/UTI. Laboratory Results WBC 19.6 10^3/uL (4.0-10.0) H 05/17/21 09:30 RBC 3.82 10^6/uL (4.1-5.3) L 05/17/21 09:30 Hgb 10.2 g/dL (11.5-15.3) L 05/17/21 09:30 Hct 33.7 % (37.0-47.0) L 05/17/21 09:30 MCV 88.2 fl (81-99) 05/17/21 09:30 MCH 26.7 pg (28.0-34.0) L 05/17/21 09:30 MCHC 30.3 g/dL (30.0-36.0) 05/17/21 09:30 RDW 15.4 % (12.1-15.1) H 05/17/21 09:30 Plt Count 443 10^3/cmm (130-400) H 05/17/21 09:30 MPV 9.4 fL (7.4-10.4) 05/17/21 09:30 Neut % (Auto) 88.9 % 05/17/21 09:30 Lymph % (Auto) 5.7 % 05/17/21 09:30 Gilliam % (Auto) 4.1 % 05/17/21 09:30 Eos % (Auto) 0.5 % 05/17/21 09:30 Baso % (Auto) 0.3 % 05/17/21 09:30 Neut # (Auto) 17.45 10^3/uL (1.8-7.7) H 05/17/21 09:30 Lymph # (Auto) 1.1 10^3/uL (0.8-4.8) 05/17/21 09:30 Gilliam # (Auto) 0.8 10^3/uL (0.2-0.9) 05/17/21 09:30 Eos # (Auto) 0.1 10^3/uL (0.0-0.8) 05/17/21 09:30 Baso # (Auto) 0.1 10^3/uL (0.0-0.1) 05/17/21 09:30 Nucleated RBC % (auto) 0 % 05/17/21 09:30 Nucleated RBCs # 0.0 /100WBC 05/17/21 09:30 PT 64.90 SECONDS (12.1-14.9) H 05/17/21 10:39 INR 7.58 (0.8-1.2) H* 05/17/21 10:39 APTT 125.9 SECONDS (23.9-36.7) H 05/17/21 10:39 Sodium 138 mmol/L (136-145) 05/17/21 09:30 Potassium 5.1 mmol/L (3.5-5.1) 05/17/21 09:30 Chloride 101 mmol/L (98-107) 05/17/21 09:30 Carbon Dioxide 25 mmol/L (22-29) 05/17/21 09:30 Anion Gap 17.1 (5-19) 05/17/21 09:30 BUN 16 mg/dL (8-23) 05/17/21 09:30 Creatinine 1.2 mg/dL (0.5-0.9) H 05/17/21 09:30 GFR Calculation 45.5 mL/min (90-130) L 05/17/21 09:30 Glucose 107 mg/dL (65-115) 05/17/21 09:30 Calculated Osmolality 288 mOsm/kg (285-295) 05/17/21 09:30 Calcium 9.7 mg/dL (8.5-10.5) 05/17/21 09:30 Total Bilirubin 0.2 mg/dL (0.15-1.2) 05/17/21 09:30 AST 15 U/L (0-32) 05/17/21 09:30 ALT 8 U/L (0-33) 05/17/21 09:30 Alkaline Phosphatase 131 IU/L (35-105) H 05/17/21 09:30 Creatine Kinase 42 U/L (26-192) 05/17/21 09:30 Total Protein 7.0 g/dL (6.6-8.7) 05/17/21 09:30 Albumin 3.6 g/dL (3.5-5.2) 05/17/21 09:30 Globulin 3.4 g/dL (1.3-4.6) 05/17/21 09:30 Lipase 38 U/L (13-60) 05/17/21 09:30 Urine Color Guillermina (Yellow) 05/17/21:30 Urine Appearance Cloudy (CLEAR) 05/17/21 09:30 Urine pH 9 (5-7) H 05/17/21 09:30 Ur Specific [place] 1.015 (1.005-1.030) 05/17/21 09:30 Urine Protein Neg (Negative) 05/17/21 09:30 Urine Glucose (UA) Norm (Normal) 05/17/21 09:30 Urine Ketones Negative (Negative) 05/17/21 09:30 Urine Blood 3+ (Negative) H 05/17/21 09:30 Urine Nitrate Negative (Negative) 05/17/21 09:30 Urine Bilirubin Neg (Negative) 05/17/21 09:30 Prot Sulfosalicylic Acd Negative (Negative) 05/17/21 09:30 Urine Urobilinogen Norm mg/dL (Negative) 05/17/21 09:30 Ur Leukocyte Esterase 1+ (Negative) H 05/17/21 09:30 Urine RBC 80-100 /hpf (0-2) H 05/17/21 09:30 Urine WBC 15-25 /hpf (0-5) H 05/17/21 09:30 Ur Squamous Epith Cells 0-4 /hpf (0-5) H 05/17/21 09:30 Amorphous Sediment Not Reportable 05/17/21:30 Urine Bacteria 1+ /hpf (NONE) H 05/17/21 09:30 Urine Mucus Trace /hpf 05/17/21 09:30 Discharge Plan Discharge Patient Disposition: Home Clinical Impression: Hematuria, Multiple sclerosis, 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, Deep vein thrombosis, lower right extremity, UTI (urinary tract infection), Anemia Condition: Stable Prescriptions: New Cipro 250 mg tablet 250 mg PO BID Qty: 14 0RF No Action docusate sodium 50 mg/5 mL Liquid 100 mg PO BID PRN (Reason: Constipation) 0RF acetaminophen [Tylenol] 325 mg Tablet 650 mg PO Q6H PRN (Reason: Pain) 0RF albuterol sulfate 2.5 mg /3 mL (0.083 %) Solution For Nebulization 2.5 mg INHALATION Q4H PRN (Reason: Shortness Of Breath) 0RF trazodone 50 mg Tablet 50 mg PO BEDTIME@20 0RF citalopram [Celexa] 10 mg Tablet 10 mg PO BEDTIME@20 0RF hydrocodone-acetaminophen 5-325 mg Tablet 1 tab PO Q6H PRN (Reason: Pain) 0RF Rx Instructions: may have 1-2 tabs at betime calcium carbonate [Tums] 300 mg (750 mg) Tablet,Chewable 300 mg PO TID@08,12,16 0RF lorazepam [Ativan] 0.5 mg Tablet 0.5 mg PO BEDTIME@20 0RF magnesium hydroxide [Milk of Magnesia] 400 mg/5 mL Suspension 30 ml PO DAILY PRN (Reason: Constipation) 0RF bisacodyl [Dulcolax (bisacodyl)] 10 mg Suppository 10 mg GA DAILY PRN (Reason: Constipation) 0RF Fleet Enema 19-7 gram/118 mL Enema 118 ml GA DAILY PRN (Reason: Constipation) 0RF omeprazole 20 mg Capsule,Delayed Release(Dr/Ec) 20 mg PO DAILY@07 0RF polyethylene glycol 3350 [Miralax] 17 gram/dose Powder 17 g PO DAILY PRN (Reason: Constipation) 0RF ondansetron 4 mg Tablet,Disintegrating 4 - 8 mg PO Q6H PRN (Reason: Nausea) 0RF Chloraseptic Throat [place] 1.4 % Aerosol,[place] 1 spray MUCOUS MEMBRANE . DIRECTED PRN (Reason: unknown) 0RF cholecalciferol (vitamin D3) [Vitamin D3] 25 mcg (1,000 unit) Capsule 25 mcg PO DAILY@07 0RF Artificial Tears(glycerin-peg) 1-0.3 % Drops 1 drp OPHTHALMIC (EYE) TID PRN (Reason: unknown) 0RF divalproex [Depakote ER] 250 mg Tablet Extended Release 24 Hr 250 mg PO DAILY@07 0RF cyclobenzaprine 5 mg Tablet 5 mg PO TID PRN (Reason: Muscle Spasm) 0RF thiamine mononitrate (vit B1) 100 mg Tablet 200 mg PO BID@07,19 0RF Biotene Oralbalance (glycerin) Gel See Rx Instructions .ROUTE .COMPLEX 0RF Rx Instructions: prn for dry mouth warfarin 2 mg Tablet 2 mg PO DAILY 0RF gabapentin 600 mg Tablet 600 mg PO TID 0RF Benadryl 25 mg Capsule 25 mg PO Q8H PRN (Reason: Itching) 0RF Discharge Orders: Discharge ED (Routine); Ordered 05/17/21 Ordered By: Ismael Pedroza Referrals: David Da Silva DO [Primary Care Provider] - Discharge Diet: Usual diet Discharge Activity: Resume usual activity Patient Instructions: Opioid Safety Activity Restrictions/Additional Instructions: Start Macrodantin 100 mg twice daily for 7 days. Repeat CBC BMP and PT/INR through the [place] [facility] with your primary care doctor within the next 2 to 3 days. Given the elevation your INR will likely continue to have some hematuria for the next few days. Coding Level of Care Code ED Acetylene Cutter for Chg Fwd Exam Comprehensive
--- NOTE | 2021-05-17 09:32 | CT_ITS ---
WS: [id number] CT ABDOMEN PELVIS TECHNIQUE: Noncontrast CT of the abdomen and pelvis with coronal and sagittal reformatted images. CLINICAL INFORMATION: flank pain COMPARISON: CT 02/15/2021 and 10/26/2018 DLP: 1713.[address] scans at [facility] use at least one of these dose optimization techniques: automated e xposure control; mA and/or kV adjustment per patient size (includes targeted exams where dose is matc hed to clinical indication); or iterative reconstruction. FINDINGS: Normal noncontrast liver. Splenic granulomas. Cholecystectomy clips. Moderate esophageal hiatal herni a with partial intrathoracic stomach. Slight hazy atelectasis in the lung bases. Noncontrast pancreas is normal. Adrenal glands are normal. RIGHT renal cortical atrophy. No hydronephrosis in either kidn ey. No obstructing renal or ureteral calculi. Haro catheter in place. Diffuse bladder wall thickenin g similar to the prior examination. Recommend correlation for UTI.Pelvic phleboliths. Normal sigmoid colon. No evidence of high-grade small or large bowel obstruction. Fat-containing umbi lical hernia. Normal caliber abdominal aorta. Mild aortic calcification. No adenopathy in the abdomen or pelvis. Normal lumbar spine. CT/CT kidney stone [id number] IMPRESSION: 1. No hydronephrosis in either kidney. No obstructing renal or ureteral calcul i. 2. Prior hysterectomy. 3. Mild hepatomegaly. Prior cholecystectomy. 4. Moderate esophageal hiatal hernia with partial intrathoracic stomach. 5. Slight hazy atelectasis in the lung bases. 6. Haro catheter in place. Diffuse bladder wall thickening similar to the geovanny or examination. Recommend correlation for cystitis/UTI.
[2021-05-17 09:42] LABS: Basophils # 0.1 10^3/uL (0.0-0.1); Basophils % 0.3 %; Eosinophils # 0.1 10^3/uL (0.0-0.8); Eosinophils % 0.5 %; Hematocrit 33.7 % (37.0-47.0); Hemoglobin 10.2 g/dL (11.5-15.3); Lymphocytes # 1.1 10^3/uL (0.8-4.8); Lymphocytes % 5.7 %; Mean Corpuscular HGB Conc 30.3 g/dL (30.0-36.0); Mean Corpuscular Hemoglobin 26.7 pg (28.0-34.0); Mean Corpuscular Volume 88.2 fl (81-99); Mean Platelet Volume 9.4 fL (7.4-10.4); Monocytes # 0.8 10^3/uL (0.2-0.9); Monocytes % 4.1 %; Neutrophils # 17.45 10^3/uL (1.8-7.7); Neutrophils % 88.9 %; Nucleated Red Blood Cells % 0 %; Platelet Count 443 10^3/cmm (130-400); Red Blood Count 3.82 10^6/uL (4.1-5.3); Red Cell Distribution Width 15.4 % (12.1-15.1); White Blood Count 19.6 10^3/uL (4.0-10.0)
[2021-05-17 10:09] LABS: Alanine Aminotransferase 8 U/L (0-33); Albumin Level 3.6 g/dL (3.5-5.2); Alkaline Phosphatase 131 IU/L (35-105); Blood Urea Nitrogen 16 mg/dL (8-23); Calcium 9.7 mg/dL (8.5-10.5); Carbon Dioxide 25 mmol/L (22-29); Chloride 101 mmol/L (98-107); Creatine Phosphokinase 42 U/L (26-192); Globulin 3.4 g/dL (1.3-4.6); Glomerular Filtration Rate 45.5 mL/min (90-130); Glucose 107 mg/dL (65-115); Lipase 38 U/L (13-60); Osmolality Calculated 288 mOsm/kg (285-295); Sodium 138 mmol/L (136-145); Total Bilirubin 0.2 mg/dL (0.15-1.2)
[2021-05-17 10:12] LABS: Anion Gap 17.1 (5-19); Aspartate Amino Transferase 15 U/L (0-32); Potassium 5.1 mmol/L (3.5-5.1)
[2021-05-17 10:14] LABS: Bilirubin Urine Neg (Negative); Blood Urine 3+ (Negative); Glucose Urine UA Norm (Normal); Ketones Urine Negative (Negative); Nitrate Urine Negative (Negative); Protein Urine Neg (Negative); Specific Gravity, Urine 1.015 (1.005-1.030); Urine Appearance Cloudy (CLEAR); Urine Color Amber (Yellow); Urobilinogen Urine Norm (Negative); pH Urine 9 (5-7)
[2021-05-17 10:15] LABS: Add Urine Culture? Yes; Add Urine Microscopic? YES; Bacteria Urine 1+ /hpf; Leukocyte Esterase Urine 1+ (Negative); Mucus Urine TRACE /hpf; RBC Urine 80-100 /hpf (0-2); Squamous Epithelial Cell Urine 0-4 /hpf (0-5); Sulfosalicylic Acid Urine Negative (Negative); WBC Urine 15-25 /hpf (0-5)
--- NOTE | 2021-05-17 11:02 | PC.NURSE ---
11:00 am Bladder irrigation with 2000 cc NS irrigation fluid. Clear irrigation noted at 300 cc and remained clear for the remaining 1700cc. Patient tolerated well. New christensen bag placed but Christensen cath remains from prior insertion. Physician at bedside to update patient on plan of care.
[2021-05-17 11:06] LABS: Partial Thromboplastin Time 125.9 SECONDS (23.9-36.7)
[2021-05-17 11:14] LABS: INR 7.58 (0.8-1.2)
[2021-05-17 11:23] VITALS: BP 121/74; PULSE 91; RESP 18; O2SAT 94
== END 2021-05-17 13:00 | disposition home or self-care (01) ==
PROVIDERS: Emergency Provider Family Medicine; PCP Internal Medicine
DX: N39.0 Urinary tract infection, site not specified (principal); R31.9 Hematuria, unspecified; G35 Multiple sclerosis; G61.0 Guillain-Barre syndrome; I82.401 Acute embolism and thrombosis of unspecified deep veins of right lower extremity; D64.9 Anemia, unspecified; Z79.01 Long term (current) use of anticoagulants
CPT/HCPCS: 74176; 80053; 81001; 82550; 83690; 85025; 85610; 85730; 87086; 93005; 99284

== ENCOUNTER → 2021-10-10 11:54 | Day surgery (SDC) | payer OTHER, SELFPAY ==
[2021-10-10] MEDS: iron sucrose 200 MG in sodium chloride 0.9% (100 ml) 100 ML 220 MG IV (13:00)
[2021-10-10 13:39] VITALS: BP 127/63; PULSE 80; RESP 18; TEMP 36.1; O2SAT 95
== END ==
PROVIDERS: PCP Internal Medicine; Visit Provider Internal Medicine
DX: D64.9 Anemia, unspecified (principal)
CPT/HCPCS: 96365; J1756

== ENCOUNTER → 2021-10-17 11:50 | Day surgery (SDC) | payer OTHER, SELFPAY ==
[2021-10-17 11:57] VITALS: BP 126/73; PULSE 78; RESP 18; TEMP 36.2; O2SAT 96
[2021-10-17 12:00] VITALS: BMI 33.3
[2021-10-17] MEDS: iron sucrose 200 MG in sodium chloride 0.9% (100 ml) 100 ML 220 MG IV (12:13)
== END ==
PROVIDERS: PCP Internal Medicine; Visit Provider Internal Medicine
DX: D64.9 Anemia, unspecified (principal)
CPT/HCPCS: 96365; J1756

== ENCOUNTER → 2021-10-24 11:45 | Day surgery (SDC) | payer OTHER, SELFPAY ==
[2021-10-24] MEDS: iron sucrose 200 MG in sodium chloride 0.9% (100 ml) 100 ML 220 MG IV (12:09)
[2021-10-24 12:10] VITALS: BP 135/76; PULSE 120; RESP 18; TEMP 36.3; O2SAT 93
== END ==
PROVIDERS: PCP Internal Medicine; Visit Provider Internal Medicine
DX: D64.9 Anemia, unspecified (principal)
CPT/HCPCS: 96365; J1756

== ENCOUNTER → 2021-11-01 08:53 | Day surgery (SDC) | payer OTHER, SELFPAY ==
[2021-11-01] MEDS: iron sucrose 200 MG in sodium chloride 0.9% (100 ml) 100 ML 220 MG IV (09:14)
[2021-11-01 09:19] VITALS: BP 114/81; PULSE 98; RESP 18; TEMP 36.4; O2SAT 94
== END ==
PROVIDERS: PCP Internal Medicine; Visit Provider Internal Medicine
DX: D64.9 Anemia, unspecified (principal)
CPT/HCPCS: 96365; J1756

== ENCOUNTER → 2021-11-07 11:44 | Day surgery (SDC) | payer OTHER, SELFPAY ==
[2021-11-07] MEDS: iron sucrose 200 MG in sodium chloride 0.9% (100 ml) 100 ML 220 MG IV (12:08)
[2021-11-07 12:09] VITALS: BP 118/81; PULSE 88; RESP 18; TEMP 36.3; O2SAT 95
== END ==
PROVIDERS: PCP Internal Medicine; Visit Provider Internal Medicine
DX: D64.9 Anemia, unspecified (principal)
CPT/HCPCS: 96365; J1756

== ENCOUNTER → 2022-04-27 14:30 | Outpatient (BNVA) | payer OTHER, SELFPAY | PROVIDERS: PCP Internal Medicine; Visit Provider Thoracic Surgery (Cardiothoracic Vascular Surgery) | DX: L89.223 Pressure ulcer of left hip, stage 3 (principal) | CPT/HCPCS: 87070; 87077; 87176; 87186; 87205 ==